=== PATIENT | male | born 1975 | race Caucasian/White ===

== ENCOUNTER 2016-06-03 17:30 | Emergency (ER) | payer SELFPAY ==
[~2016-06-03] VITALS: Ht 172.7 cm; Wt 90.7 kg
[2016-06-03] MEDS ORDERED: PREDNISONE20 MG ORAL (18:14)
[2016-06-03] MEDS ORDERED: AMOXICILLIN500 MG ORAL (18:14)
[2016-06-03 18:18] VITALS: BP 119/73
[2016-06-03 18:30] VITALS: BP 119/73
--- NOTE | 2016-06-03 21:04 | Emergency Room Report ---
History of Present Illness General Chief Complaint: Earache Source: Patient Present Illness HPI The patient is a 40-year-old male presenting for sore throat, cough, and ear pain. The patient states that he was treated for tonsillitis one month prior with Levaquin for the same symptoms. Symptoms did begin to resolve but have again started over the past week. Pain is described as a 5/10 dull ache to the back of the throat and is worse with swallowing. Pain radiates to the left ear. He does admit to subjective fevers. He denies any other symptoms including nausea, vomiting, headache, chest pain, shortness of breath Allergies: Coded Allergies: No Known Allergies (Unverified , 06/03/16) Patient History Past Medical History: see triage record Pertinent Family History: none Reviewed Nursing Documentation: PMH: Agreed, PSxH: Agreed Nursing Documentation-PMH Past Medical History: No Stated History Review of Systems All Other Systems: negative except mentioned in HPI Physical Exam Vital Signs Date Time Temp Pulse Resp B/P Pulse Ox O2 Delivery O2 Flow Rate FiO2 06/03/16 17:40 98.1 67 20 119/73 98 Room Air Sp02 EP Interpretation: reviewed, normal General Appearance: no apparent distress, alert, GCS 15, non-toxic Head: normocephalic, atraumatic Eyes: bilateral eye PERRL, bilateral eye normal inspection ENT: hearing grossly normal, no angioedema, normal voice, TMs + canals normal - L TM is erythematous but no bulging. , uvula midline, tonsillar swelling, pharyngeal erythema Neck: full range of motion, supple/symm/no masses Respiratory: chest non-tender, lungs clear, normal breath sounds, no wheezing, speaking full sentences Cardiovascular #1: regular rate, rhythm, no edema Musculoskeletal: back normal, gait/station normal, normal range of motion, non- tender Neurologic: alert, oriented x3, responsive, motor strength/tone normal, sensory intact, normal gait, speech normal Psychiatric: judgement/insight normal, memory normal, mood/affect normal, no suicidal/homicidal ideation Skin: normal color, no rash, warm/dry, well hydrated Lymphatic: adenopathy - cervical Medical Decision Making PA Attestation Dr. Lambert is my supervising physician. Patient management was discussed with my supervising physician Diagnostic Impression: Primary Impression: Pharyngitis, acute Qualified Codes: J02.9 - Acute pharyngitis, unspecified ER Course The patient is a 40-year-old male presenting for sore throat, cough, and ear pain. Differential diagnosis include but not limited to pharyngitis, sinusitis, AOM, bronchitis, PNA Physical exam: Vitals within normal limits. Afebrile. No apparent distress HEENT exam: There is bilateral tonsillar edema, erythema. Uvula midline. Moist mucous membranes. There is bilateral cervical lymphadenopathy. Lungs are clear to auscultation bilaterally Skin is warm and dry. No rash The patient will be discharged home with a prescription for amoxicillin and is given ER precautions. Patient will followup with primary care Last Vital Signs Date Time Temp Pulse Resp B/P Pulse Ox O2 Delivery O2 Flow Rate FiO2 06/03/16 18:30 98.1 20 119/73 98 Room Air 06/03/16 17:40 67 Status: improved Disposition: HOME, SELF-CARE Condition: Improved Scripts Prednisone* (PREDNISONE*) 20 Mg Tablet 40 MG ORAL DAILY, #8 TAB Prov: DEON CONTE 06/03/16 Amoxicillin* (AMOXIL*) 500 Mg Capsule 500 MG ORAL Q12HR, #20 CAP Prov: DEON CONTE.A. 06/03/16 Patient Instructions: Pharyngitis Additional Instructions: I discussed my findings with the patient. All questions and concerns have been answered. Treatment and medication compliance have been addressed. I advised the patient that they need to follow up with PMD in 3-5 days. Return to ED if pain remains or worsens, cough worsens or remains, you notice blood in your sputum, you notice wheezing, you experience a fever, or if needed for any reason. Patient verbalized understanding of discharge instructions. DEON CONTE Jun 03, 2016 21:04
== END 2016-06-03 18:31 | disposition home or self-care (01) ==
LOC: EMR 17:55
DX: J02.9 Acute pharyngitis, unspecified (principal)
CPT/HCPCS: 99284